=== PATIENT | male | born 2000 | race Caucasian/White ===

== ENCOUNTER 2018-03-18 17:21 | Emergency (ER) | payer OTHER, MEDICAID ==
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
[2018-03-18 17:42] LABS: BASO % 0.3 % (0-6); EOS % 3.1 % (0-6); GRAN % 50.1 % (47-80); HEMATOCRIT 45.9 % (42.0-52.0); HEMOGLOBIN 15.7 gm/dl (14.0-18.0); LYMPH % 37.8 % (16-45); MEAN CELL VOLUME 87.6 fl (81-97); MEAN CORPUSCULAR HGB CONC 34.2 g/dl (32-36); MEAN PLATELET VOLUME 9.7 fl (7.4-10.4); MONO % 8.7 % (0-9); PLATELET COUNT 337 K/uL (130-400); RED BLOOD COUNT 5.24 M/uL (4.40-5.70); RED CELL DISTRIBUTION WIDTH 12.6 % (11.5-14.5); WHITE BLOOD COUNT W/O DIFF 7.8 K/uL (4.2-12.2)
[2018-03-18 17:52] LABS: BLOOD UREA NITROGEN 16 mg/dL (6-20); CREATININE 1.1 mg/dL (0.7-1.2); TOTAL PROTEIN 7.6 g/dL (6.6-8.7)
[2018-03-18 17:54] LABS: GLUCOSE,RANDOM 119 mg/dL (74-109)
[2018-03-18 17:57] LABS: ALB/GLOB RATIO 1.8 (1.1-1.8); ALBUMIN 4.9 g/dL (4.0-5.0); ALKALINE PHOSPHATASE 80 U/L (40-129); ALT/SGPT 64 U/L (<41); AST/SGOT 39 U/L (10.0-50.0)
[2018-03-18 18:00] LABS: ACETAMINOPHEN < 5.0 ug/mL (10.0-30.0); SALICYLATE < 0.3 mg/dL (2.8-20)
[2018-03-18 18:04] LABS: AMPHETAMINE SCREEN URINE NOT DETECTED; BARBITURATE SCREEN URINE NOT DETECTED; BENZODIAZEPINE SCREEN URINE NOT DETECTED; COCAINE SCREEN URINE NOT DETECTED; METHADONE SCREEN URINE NOT DETECTED; METHAMPHETAMINE SCREEN NOT DETECTED; OPIATE SCREEN URINE NOT DETECTED; OXYCODONE SCREEN URINE NOT DETECTED; PHENCYCLIDINE SCREEN URINE NOT DETECTED; PROPOXYPHENE SCREEN URINE NOT DETECTED; THC SCREEN URINE NOT DETECTED; TRICYCLIC ANTIDEPRESSANT SCRN NOT DETECTED
--- NOTE | 2018-03-22 07:29 | Emergency Department Record ---
History of Present Illness - General Chief Complaint: Crisis Evaluation Stated Complaint: ANXIETY Time Seen by Provider: 03/18/18 17:28 Source: Patient, Family, Old records reviewed Mode of Arrival: Ambulatory Travel/Exposure to [place] Within 21 Days of Symptoms: No - History of Present Illness Onset/Timin -: Days(s) History of same: Yes Quality: Changing over time, Resolved prior to arrival Improves With: Medication Worsens With: Other Context: Significant life stressor Treatments Prior to Arrival: Other Treatment Prior to Arrival Comment:: his own medication If Self Harm: Admits thoughts of self harm, Self-inflicted trauma - Jeannie Coma Scale Eye Response: (4) Open spontaneously Motor Response: (6) Obeys commands Verbal Response: (5) Oriented Jeannie Total: 15 - Related Data Allergies Allergy/AdvReac Type Severity Reaction Status Date / Time No Known Drug Allergies Allergy Verified 03/18/18 17:38 Review of Systems Constitutional: Denies: Chills, Fever Eyes: Denies: Eye discharge ENT: Denies: Congestion Respiratory: Denies: Cough, Dyspnea Cardiovascular: Denies: Arrhythmia Endocrine: Denies: Fatigue Gastrointestinal: Denies: Abdominal pain Genitourinary: Denies: Dysuria Musculoskeletal: Denies: Arthralgia Past Medical History - SOCIAL HISTORY Smoking Status: Never smoker Alcohol Use: None Drug Use: None - RESPIRATORY Hx Respiratory Disorders: No - CARDIOVASCULAR Hx Cardio Disorders: No - NEURO Hx Neuro Disorders: No - GI Hx GI Disorders: No - Hx Genitourinary Disorders: No - ENDOCRINE Hx Diabetes: No Hx Thyroid Disease: No - MUSCULOSKELETAL Hx Musculoskeletal Disorders: No - PSYCH Hx Anxiety: Yes Hx Depression: Yes Comment:: PTSD - HEMATOLOGY/ONCOLOGY Hx Hematology/Oncology Disorders: No Family Medical History Any Significant Family History?: Yes Physical Exam - General Limitations: No limitations Course Vital Signs 03/18/18 03/18/18 03/18/18 17:26 18:01 18:14 Temperature 98.5 F 98.0 F Pulse Rate 91 H Pulse Rate [ 73 Pulse Ox Probe] Respiratory 28 H 16 Rate Blood Pressure 145/90 Blood Pressure 125/70 [Left Arm] Pulse Ox 98 96 03/18/18 03/19/18 03/19/18 19:04 02:40 07:12 Temperature 97.7 F 97.8 F Pulse Rate 92 H Pulse Rate [ 64 83 Pulse Ox Probe] Respiratory 12 16 16 Rate Blood Pressure 136/74 Blood Pressure 123/65 124/87 [Left Arm] Pulse Ox 98 99 96 Medical Decision Making - Lab Data Result diagrams: 03/18/18 17:35 03/18/18 17:35 Lab Results 03/18/18 03/18/18 03/18/18 Range/Units 17:35 17:35 17:35 WBC 7.8 (4.2-12.2) K/uL RBC 5.24 (4.40-5.70) M/uL Hgb 15.7 (14.0-18.0) gm/dl Hct 45.9 (42.0-52.0) % MCV 87.6 (81-97) fl MCH 30.0 (27-33) pg MCHC 34.2 (32-36) g/dl RDW 12.6 (11.5-14.5) % Plt Count 337 (130-400) K/uL MPV 9.7 (7.4-10.4) fl Gran % 50.1 (47-80) % Lymphocytes % 37.8 (16-45) % Monocytes % 8.7 (0-9) % Eosinophils % 3.1 (0-6) % Basophils % 0.3 (0-6) % Sodium 140 (136-145) mmol/L Potassium 3.5 (3.4-4.5) mmol/L Chloride 99 (98-107) mmol/L Carbon Dioxide 25.0 (22-29) mmol/L Anion Gap 16.0 (7-16) BUN 16 (6-20) mg/dL Creatinine 1.1 (0.7-1.2) mg/dL Estimated GFR TNP Random Glucose 119 H (74-109) mg/dL Calcium 9.7 (8.6-10.0) mg/dL Total Bilirubin 0.40 (0.2-1.0) mg/dL AST 39 (10.0-50.0) U/L ALT 64 H (<41) U/L Alkaline Phosphatase 80 (40-129) U/L Total Protein 7.6 (6.6-8.7) g/dL Albumin 4.9 (4.0-5.0) g/dL Globulin 2.7 (1.4-4.8) gm/dL Albumin/Globulin Ratio 1.8 (1.1-1.8) Salicylates < 0.3 L (2.8-20) mg/dL Urine Opiates Screen Ur Oxycodone Screen Urine Methadone Screen Ur Propoxyphene Screen Acetaminophen < 5.0 L (10.0-30.0) ug/mL Ur Barbituates Screen Ur Tricyclics Screen Ur Phencyclidine Scrn Ur Amphetamine Screen U Methamphetamines Scrn U Benzodiazepines Scrn Urine Cocaine Screen Urine Cannabis Screen Ethyl Alcohol 0.000 (0-0.010) g/dL 03/18/18 Range/Units 17:56 WBC (4.2-12.2) K/uL RBC (4.40-5.70) M/uL Hgb (14.0-18.0) gm/dl Hct (42.0-52.0) % MCV (81-97) fl MCH (27-33) pg MCHC (32-36) g/dl RDW (11.5-14.5) % Plt Count (130-400) K/uL MPV (7.4-10.4) fl Gran % (47-80) % Lymphocytes % (16-45) % Monocytes % (0-9) % Eosinophils % (0-6) % Basophils % (0-6) % Sodium (136-145) mmol/L Potassium (3.4-4.5) mmol/L Chloride (98-107) mmol/L Carbon Dioxide (22-29) mmol/L Anion Gap (7-16) BUN (6-20) mg/dL Creatinine (0.7-1.2) mg/dL Estimated GFR Random Glucose (74-109) mg/dL Calcium (8.6-10.0) mg/dL Total Bilirubin (0.2-1.0) mg/dL AST (10.0-50.0) U/L ALT (<41) U/L Alkaline Phosphatase (40-129) U/L Total Protein (6.6-8.7) g/dL Albumin (4.0-5.0) g/dL Globulin (1.4-4.8) gm/dL Albumin/Globulin Ratio (1.1-1.8) Salicylates (2.8-20) mg/dL Urine Opiates Screen Not detected Ur Oxycodone Screen Not detected Urine Methadone Screen Not detected Ur Propoxyphene Screen Not detected Acetaminophen (10.0-30.0) ug/mL Ur Barbituates Screen Not detected Ur Tricyclics Screen Not detected Ur Phencyclidine Scrn Not detected Ur Amphetamine Screen Not detected U Methamphetamines Scrn Not detected U Benzodiazepines Scrn Not detected Urine Cocaine Screen Not detected Urine Cannabis Screen Not detected Ethyl Alcohol (0-0.010) g/dL Disposition Clinical Impression: Suicidal ideation Disposition: Psychiatric Hospital Condition: (1) Good Forms: Patient Portal Access Quality - Quality Measures Quality Measures: N/A - Blood Pressure Screening View Details: Yes Does Patient Have Any of the Following: No Blood Pressure Classification: Pre-Hypertensive BP Reading Systolic Measurement: 136 Diastolic Measurement: 74 Screening for High Blood Pressure: < Pre-Hypertensive BP, F/U Documented > [ G8950] Pre-Hypertensive Follow-up Interventions: Referral to alternative/primary care provider.
== END 2018-03-19 07:17 ==
LOC: ER 17:21
DX: T14.91XA Suicide attempt, initial encounter (principal); S60.811A Abrasion of right wrist, initial encounter; F32.9 Major depressive disorder, single episode, unspecified; X78.8XXA Intentional self-harm by other sharp object, initial encounter; Y92.008 Other place in unspecified non-institutional (private) residence as the place of occurrence of the external cause
CPT/HCPCS: 80053; 80305; 80320; 80329; 85025; 93005; 93010; 99285

== ENCOUNTER 2019-06-21 17:39 | Emergency (ER) | payer MEDICAID, OTHER ==
[2019-06-21 18:28] LABS: ABSOLUTE NEUTROPHIL COUNT 3.71; BASO % 0.1 % (0-6); EOS % 2.4 % (0-6); GRAN % 55.3 % (47-80); HEMATOCRIT 46.1 % (42.0-52.0); HEMOGLOBIN 15.5 gm/dl (14.0-18.0); MEAN CELL VOLUME 86.7 fl (81-97); MEAN CORPUSCULAR HEMOGLOBIN 29.1 pg (27-33); MEAN CORPUSCULAR HGB CONC 33.6 g/dl (32-36); MEAN PLATELET VOLUME 9.4 fl (7.4-10.4); MONO % 8.2 % (0-9); PLATELET COUNT 316 K/uL (130-400); RED BLOOD COUNT 5.32 M/uL (4.40-5.70); RED CELL DISTRIBUTION WIDTH 12.9 % (11.5-14.5); WHITE BLOOD COUNT W/O DIFF 6.7 K/uL (4.2-12.2)
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
[2019-06-21 18:37] LABS: BARBITURATE SCREEN URINE NOT DETECTED; BENZODIAZEPINE SCREEN URINE NOT DETECTED; METHADONE SCREEN URINE NOT DETECTED; OPIATE SCREEN URINE NOT DETECTED; THC SCREEN URINE NOT DETECTED; TRICYCLIC ANTIDEPRESSANT SCRN NOT DETECTED
[2019-06-21 18:38] LABS: AMPHETAMINE SCREEN URINE NOT DETECTED; COCAINE SCREEN URINE NOT DETECTED; METHAMPHETAMINE SCREEN NOT DETECTED; OXYCODONE SCREEN URINE NOT DETECTED; PHENCYCLIDINE SCREEN URINE NOT DETECTED; PROPOXYPHENE SCREEN URINE NOT DETECTED
[2019-06-21 18:39] LABS: BLOOD UREA NITROGEN 15 mg/dL (6-20); CREATININE 0.8 mg/dL (0.7-1.2); EST GLOMERULAR FILTRATION RATE > 60 mL/min
[2019-06-21 18:40] LABS: TOTAL PROTEIN 7.5 g/dL (6.6-8.7)
[2019-06-21 18:42] LABS: GLUCOSE,RANDOM 146 mg/dL (74-109)
[2019-06-21 18:44] LABS: ALT/SGPT 94 U/L (<41); AST/SGOT 42 U/L (10.0-50.0)
[2019-06-21 18:45] LABS: ALB/GLOB RATIO 1.8 (1.1-1.8); ALBUMIN 4.8 g/dL (4.0-5.0); ALKALINE PHOSPHATASE 72 U/L (40-129)
[2019-06-21 18:46] LABS: ACETAMINOPHEN < 5.0 ug/mL (10.0-30.0); SALICYLATE < 0.3 mg/dL (2.8-20)
[2019-06-21 18:55] LABS: THYROID STIMULATING HORMONE 1.76 uIU/mL (0.270-4.20)
== END 2019-06-21 20:57 | disposition home or self-care (01) ==
LOC: ER 17:39
DX: S61.511A Laceration without foreign body of right wrist, initial encounter (principal); X78.1XXA Intentional self-harm by knife, initial encounter
CPT/HCPCS: 12002; 80053; 80305; 80320; 80329; 84443; 85025; 99284

== ENCOUNTER 2019-07-02 11:49 | Emergency (ER) | payer OTHER ==
--- NOTE | 2019-07-02 12:01 | Emergency Department Record ---
History of Present Illness - General Chief Complaint: Suture removal Stated Complaint: SUTURE REMOVAL Time Seen by Provider: 07/02/19 11:53 Source: Patient Mode of arrival: Ambulatory Limitations: No limitations - History of Present Illness Initial Comments: 19 yo presents for wound evaluation for suture removal. No complaints since the original repair. No abnormal pain, redness or drainage. He has full ROM of his fingers with limitations. No numbness or tingling. MD Complaint: Suture/staple removal, Wound re-check -: Week(s) (2) Initial Visit For: Laceration Returns Today for: Staple/stitch removal, Wound recheck Symptoms Since Prior Visit: No new symptoms Associated Symptoms: None - Related Data Allergies Allergy/AdvReac Type Severity Reaction Status Date / Time No Known Drug Allergies Allergy Verified 07/02/19 11:55 Review of Systems Constitutional: Denies: Chills, Fever ENT: Denies: Congestion Respiratory: Denies: Cough Endocrine: Denies: Fatigue Gastrointestinal: Denies: Diarrhea, Nausea, Vomiting Genitourinary: Denies: Dysuria Musculoskeletal: Denies: Arthralgia, Myalgia Skin: Denies: Bruising, Change in color, Rash Neurological: Denies: Headache, Numbness, Tingling, Weakness Hematological/Lymphatic: Denies: Easy bleeding, Easy bruising Past Medical History - SOCIAL HISTORY Smoking Status: Never smoker Drug Use: None - RESPIRATORY Hx Respiratory Disorders: No Hx Asthma: Yes - CARDIOVASCULAR Hx Cardio Disorders: No - NEURO Hx Neuro Disorders: No - GI Hx GI Disorders: No - Hx Genitourinary Disorders: No - ENDOCRINE Hx Diabetes: No Hx Thyroid Disease: No - MUSCULOSKELETAL Hx Musculoskeletal Disorders: No - PSYCH Hx Anxiety: Yes Hx Depression: Yes Comment:: PTSD - HEMATOLOGY/ONCOLOGY Hx Hematology/Oncology Disorders: No Physical Exam - General General Appearance: Alert, Oriented x3, Cooperative, No acute distress Limitations: No limitations - Head Head exam: Atraumatic, Normal inspection - Eye Eye exam: Normal appearance - ENT ENT exam: Normal exam Ear exam: Normal external inspection Nasal Exam: Normal inspection Mouth exam: Normal external inspection - Neck Neck exam: Normal inspection - Cardiovascular Peripheral Pulses: 2+: Radial (R) - Extremities Extremities exam: Normal inspection, Other (Healing without signs of infection) - Neurological Neurological exam: Alert, Oriented X3 - Psychiatric Psychiatric exam: Normal affect, Normal mood - Skin Skin exam: Dry, Intact, Normal color, Warm. negative: Erythema Course - Reevaluation(s) Reevaluation #1: 07/02/19 11:56 Sutures removed without difficulty No signs of complications with healing We discussed home care while the wound continues to heal We discussed reasons to return to the ED for recheck as well Disposition Disposition: Discharge Clinical Impression: Visit for suture removal Disposition: Home, Self-Care Condition: (1) Good Instructions: Stitches Removal (ED) Additional Instructions: Return if you have any concerns with the continued healing of the laceration Forms: Patient Portal Access Time of Disposition: 11:57 Quality - Quality Measures Quality Measures: N/A - Blood Pressure Screening Does Patient Have Any of the Following: No Blood Pressure Classification: Pre-Hypertensive BP Reading Systolic Measurement: 122 Diastolic Measurement: 64 Screening for High Blood Pressure: < Pre-Hypertensive BP, F/U Documented > [[id number]] Pre-Hypertensive Follow-up Interventions: Referral to alternative/primary care provider.
== END 2019-07-02 12:04 | disposition home or self-care (01) ==
LOC: ER 11:49
DX: Z48.02 Encounter for removal of sutures (principal)